=== PATIENT | female | born 2000 | race Two or more races ===

== ENCOUNTER 2021-04-11 01:36 | Emergency (ER) | payer OTHER ==
[~2021-04-11] VITALS: Ht 157.5 cm; Wt 70.0 kg
[2021-04-11 02:20] VITALS: BP 115/80
[2021-04-11 02:20] LABS: COVID AG,FIA SOURCE NASOPHARYNGEAL
== END 2021-04-11 03:46 | disposition home or self-care (01) ==
LOC: EMS 01:44
DX: R09.81 Nasal congestion (principal); Z20.822 Contact with and (suspected) exposure to COVID-19
CPT/HCPCS: 99283